=== PATIENT | female | born 1960 | race Hispanic/Latino ===

== ENCOUNTER 2018-01-05 17:59 | Inpatient (IN) | payer OTHER ==
[2018-01-05 18:18] VITALS: BMI 21.5
[2018-01-05 19:32] LABS: HCG,QUALITATIVE URINE NEGATIVE (NEGATIVE)
[2018-01-05 19:35] LABS: SQUAMOUS EPITHIAL 12 /hpf (0-5); URINE BILIRUBIN NEGATIVE (NEGATIVE); URINE BLOOD 1+ (NEGATIVE); URINE CLARITY Clear (Clear); URINE COLOR Amber (YELLOW); URINE GLUCOSE (UA) NORMAL (Normal); URINE LEUKOCYTE ESTERASE NEG Leu/uL (Negative); URINE PROTEIN NEGATIVE (NEGATIVE)
[2018-01-05 19:41] LABS: BASO % 0.8 % (0.0-2.0); HEMOGLOBIN 11.1 g/dL (11.0-16.0); LYMPH # 1.1 K/uL (1.0-4.3); LYMPH % 26.2 % (20.0-40.0); MEAN CELL VOLUME 96.9 fL (81.0-99.0); MEAN CORPUSCULAR HEMOGLOBIN 32.7 pg (27.0-31.0); MEAN CORPUSCULAR HGB CONC 33.7 g/dL (33.0-37.0); MEAN PLATELET VOLUME 8.8 fL (7.2-11.7); MONO # 0.6 K/uL (0.0-0.8); MONO % 14.1 % (0.0-10.0); NEUT # 2.3 K/uL (1.8-7.0); NEUT % 57.9 % (50.0-75.0); NRBC % 0.1 % (0.0-2.0); RBC 3.4 Mil/uL (3.80-5.20); RED CELL DISTRIBUTION WIDTH 15.1 % (11.5-14.5)
--- NOTE | 2018-01-05 19:41 | C.PDOC ---
History Of Present Illness 57 year old female presents to the ED requesting detox for alcohol abuse. Patient reports her last drink was couple of hours today [employer]. Patient denies SI/HI, hallucination, CP, SOB, injury, fall, trauma. Time Seen by Provider: 01/05/18 19:41 Chief Complaint (Nursing): Substance Abuse History Per: Patient History/Exam Limitations: intoxication Onset/Duration Of Symptoms: Hrs Current Symptoms Are (Timing): Still Present Suicide/Self Injury Attempted (Context): None Modifying Factor(s): Alcohol Associated Symptoms: denies: Depression, Suicidal Thoughts, Suicidal Plan Additional History Per: Patient Past Medical History Reviewed: Historical Data, Nursing Documentation, Vital Signs Vital Signs: Last Vital Signs Temp 98.4 F 01/05/18 18:22 Pulse 92 H 01/05/18 18:22 Resp 17 01/05/18 18:22 BP 128/73 01/05/18 18:22 Pulse Ox 97 01/05/18 18:22 - Medical History PMH: Seizures Surgical History: No Surg Hx Family History: States: Unknown Family Hx - Social History Hx Alcohol Use: Yes Hx Substance Use: No - Immunization History Hx Tetanus Toxoid Vaccination: No Hx Influenza Vaccination: No Hx Pneumococcal Vaccination: No Review Of Systems Constitutional: Negative for: Fever, Chills Eyes: Negative for: Vision Change Cardiovascular: Negative for: Chest Pain Respiratory: Negative for: Shortness of Breath Gastrointestinal: Negative for: Nausea, Vomiting, Abdominal Pain Skin: Negative for: Rash Psych: Negative for: Depression, Suicidal ideation Physical Exam - Physical Exam Appears: Non-toxic, No Acute Distress Skin: Warm, Dry Head: Normacephalic Eye(s): bilateral: Normal Inspection Oral Mucosa: Moist Neck: Supple Chest: Symmetrical Cardiovascular: Rhythm Regular Respiratory: No Rales, No Rhonchi, No Wheezing Gastrointestinal/Abdominal: Soft, No Tenderness, No Guarding, No Rebound Back: Normal Inspection Extremity: Normal ROM Extremity: Bilateral: Atraumatic, Normal Color And Temperature, Normal ROM Neurological/Psych: Oriented x3, Normal Speech, Normal Cognition Gait: Steady ED Course And Treatment - Laboratory Results Result Diagrams: 01/05/18 19:38 01/05/18 19:38 O2 Sat by Pulse Oximetry: 97 (ON RA) Pulse Ox Interpretation: Normal Progress Note: Plan: - Librium 100 mg PO. - Labs. - UA. - Crisis eval Disposition Discussed With DrJett: Juan J Guevara Comment: accepted the pt on his service and took over the care at 8:55 PM Doctor Will See Patient In The: Hospital Counseled Patient/Family Regarding: Studies Performed, Diagnosis - Disposition Disposition: HOSPITALIZED Disposition Time: 19:41 Condition: FAIR Forms: [facility] (Armenian) - Clinical Impression Clinical Impression: Alcohol use disorder - Scribe Statement The provider has reviewed the documentation as recorded by the Scribe Woody Jiang All medical record entries made by the Scribe were at my direction and personally dictated by me. I have reviewed the chart and agree that the record accurately reflects my personal performance of the history, physical exam, medi maryann decision making, and the department course for this patient. I have also personally directed, reviewed, and agree with the discharge instructions and disposition. Decision To Admit - Pt Status Changed To: Hospital Disposition Of: Inpatient - Admit Certification Admit to Inpatient:: After my assessment, the patient will require hospitalization for at least two midnights. This is because of the severity of symptoms shown, intensity of services needed, and/or the medical risk in this patient being treated as an outpatient. - InPatient: Physician Admission Certification: I certify that this patient requires 2 or more midnights of care for the following reason:: After my assessment, the patient will require hospitalization for at least two midnights. This is because of the severity of symptoms shown, intensity of services needed, and/or the medical risk in this patient being treated as an outpatient. - . Bed Request Type: Detox Admitting Physician: Juan J Guevara Patient Diagnosis: Alcohol use disorder
[2018-01-05 19:44] LABS: BARBITURATES, UR NEGATIVE (NEGATIVE); OPIATES, UR NEGATIVE (NEGATIVE); PHENCYCLIDINE, UR NEGATIVE (NEGATIVE)
[2018-01-05 19:50] LABS: BENZODIAZEPINES, UR POSITIVE (NEGATIVE)
[2018-01-05 19:54] LABS: ALB/GLOB RATIO 0.9 (1.0-2.1); ALBUMIN 3.9 g/dL (3.5-5.0); ALT/SGPT 41 U/L (9-52); AST/SGOT 139 U/L (14-36); BLOOD UREA NITROGEN 8 mg/dL (7-17); CALCIUM 8.4 mg/dl (8.6-10.4); GFR NON-AFRICAN AMERICAN > 60
--- NOTE | 2018-01-05 21:15 | PCM.BM ---
Treatment Plan Problems - Problems identified on initial assessmt Potential for alcohol withdrawal Date Initiated: 01/05/18 Time Initiated: 21:14 Assessment reference: NA Status: Active Treatment assets and liabiliti Patient Assests: ADL independent, negotiates basic needs, cognitively intact Patient Liabilities: substance abuse (alcohol) - Milieu Protocol Maintain good personal hygiene: daily Encourage regular showers, daily Remind patient to perform daily oral care, daily Assist patient to perform ADL's Conduct patient checks and document Observation sheet: Q15 minutes Maintain personal safety: every shift Educate patient to report safety concerns to staff, every shift Monitor environment for contraband/sharps Medication safety: Monitor for expected outcome, potential side effects: every shift, Assess barriers to learning: every shift, Assess readiness for medication education: every shift
[2018-01-05] MEDS ORDERED: Vitamins A & D Oint UD Foilpak TOP PRN (22:26)
[2018-01-05] MEDS: Brimonidine 0.2% Opth Sol (5ml) OU SCH (23:27)
[2018-01-05] MEDS: Latanoprost 2.5 ml Opht Soln OU SCH (23:28)
[2018-01-06] MEDS: Brimonidine 0.2% Opth Sol (5ml) OU SCH ×2 (09:51→18:38)
[2018-01-06] MEDS: Multiple Vitamins Tab PO SCH (12:47)
--- NOTE | 2018-01-06 19:00 | PCM.PSYCH ---
Initial Psychiatric Evaluation - Initial Psychiatric Evaluation Type of Admission: Voluntary Legal Status: Capacity Chief Complaint (in patient's own words): I need treatment for alcohol use. History of Present Illness and Precipitating Events: Patient is a 57 years old, single, unemployed, female with no previous psychiatric history was admitted due to withdrawing from alcohol. Alcohol: Patient started using alcohol in her 20s, increased gradually. Currently using 6 pack of beer daily and up to 3 little airplane bottles of vodka daily. Last used yesterday. Patient has history of seasonal. Last seizure 8 years ago. Patient is on Keppra. Denied use of any other drugs including cocaine, cannabis and alcohol. X Denied smoking cigarettes. Patient was born in [place] and has high school graduation. Not working for last 1 year. On SSD. Lives alone lives alone. Never and has no children. His height is 5 feet 2 inches and weight is 118 pounds. Current Medications: Active Medications Generic Name Dose Route Start Last Admin Trade Name Freq PRN Reason Stop Dose Admin Brimonidine Tartrate 0 ml 01/05/18 22:40 01/06/18 18:38 Alphagan 0.2% Opht OU 1 drop BID MICHELLE Administration Clonidine HCl 0.1 mg 01/06/18 12:33 Catapres PO Q4H PRN Symptoms of alcohol withdrawl Folic Acid 1 mg 01/06/18 12:45 01/06/18 12:47 Folic Acid PO 1 mg DAILY MICHELLE Administration Gabapentin 300 mg 01/06/18 18:00 01/06/18 18:35 Neurontin PO 300 mg BID MICHELLE Administration Ibuprofen 400 mg 01/06/18 12:36 Motrin Tab PO Q6 PRN Pain, moderate (4-7) Latanoprost 0 ml 01/05/18 22:31 01/05/18 23:28 Xalatan Opht OU 2.5 ml HS MICHELLE Administration Levetiracetam 750 mg 01/06/18 22:00 Keppra PO Q12 MICHELLE Lorazepam 2 mg 01/06/18 12:45 01/06/18 16:44 Ativan PO 01/11/18 12:44 2 mg Q4 MICHELLE Administration Taper Lorazepam 1 mg 01/06/18 12:33 Ativan PO Q4H PRN Symptoms of alcohol withdrawl Multivitamins 1 tab 01/06/18 12:45 01/06/18 12:47 Hexavitamin PO 1 tab DAILY MICHELLE Administration Thiamine HCl 100 mg 01/06/18 12:45 01/06/18 12:47 Vitamin B1 Tab PO 100 mg DAILY MICHELLE Administration Trazodone HCl 50 mg 01/05/18 22:06 01/05/18 22:35 Desyrel PO 50 mg HS PRN Administration Insomnia Vitamin A 1 ea 01/05/18 22:26 01/05/18 22:35 Vitamin A & D Oint Ud Foilpak TOP 1 ea BID PRN Administration dry skin Past Psychiatric History - Past Psychiatric History Previous Treatment History: None History of Abuse: None reported History of ETOH/Drug Use: See HPI History of Family Illness: None reported Pertinent Medical Hx (Current Medical&Sleep Prob, Allergies): Allergies Allergy/AdvReac Type Severity Reaction Status Date / Time sulfamethoxazole Allergy RASH Verified 01/05/18 18:18 [From Bactrim] trimethoprim [From Bactrim] Allergy RASH Verified 01/05/18 18:18 Brimonidine Tartrate [Alphagan P 0.1 % Ophth] 5 ml OU BID 01/05/18 Latanoprost 0.005% Opht [Xalatan Opht] 1 drop OU HS 01/05/18 Levetiracetam [Keppra] 750 mg PO BID 01/05/18 RX: Famotidine 20 mg PO DAILY 01/05/18 Review of Systems - Psychiatric Psychiatric: As Per HPI, Anxiety Mental Status Examination - Personal Presentation Personal Presentation: Looks stated age - Affect Affect: Other (Appropriate) - Motor Activity Motor Activity: Calm - Reliability in Providing Information Reliability in Providing Information: Fair - Speech Speech: Organized - Mood Mood: Anxious - Formal Thought Process Formal Thought Process: No Impairment - Hallucinations/Delusions Hallucinations: Other (None reported) Delusions: Other - Obsessions/Compulsions Obsessions: None Compulsions: None - Cognitive Functions Orientation: Person, Place, Situation, Time Sensorium: Alert Attention/Concentration: Attentive Abstract Thinking: Adamant Estimate of Intelligence: Average Judgement: Intact, as evidence by: Insight regarding need for hospitalization Memory: Recent intact, as evidence by: Ability to recall events of the day, Remote intact, as evidenced by: Ability to recall historical events - Risk Risk: Withdrawal, Diminished functioning - Strength & Assets Inventory Strength & Assets Inventory: Cooperative - Limitations Limitations: Living alone DSM 5 DX - DSM 5 DSM 5 Diagnosis: Alcohol withdrawal Alcohol use disorder severe - Recommended/Plan of Treatment Treatment Recommendations and Plan of Treatment: Patient education. Supportive therapy. CBT for relapse prevention. [place] for abstinence. We'll start lorazepam taper for alcohol withdrawal symptoms. Other when necessary medications. Projected ELOS: 4-5 days - Smoking Cessation Smoking Cessation Initiated: No Reason for not providing: Patient doesn't smoke cigarettes
[2018-01-06] MEDS: Latanoprost 2.5 ml Opht Soln OU SCH (21:00)
[2018-01-07] MEDS: Multiple Vitamins Tab PO SCH (09:46)
[2018-01-07] MEDS: Brimonidine 0.2% Opth Sol (5ml) OU SCH ×2 (09:50→18:16)
--- NOTE | 2018-01-07 14:48 | PCM.PYCHPN ---
Psychiatric Progress Note - Psychiatric Progress Note Patient seen today, length of contact: 15 minutes Patient Chief Complaint: I'm feeling better than before. Problems Identified/Issues Discussed: Patient seen, chart reviewed, case discussed with the staff. Issues related to illness and treatment were discussed with the patient and staff. Reported compliant with treatment with no adverse effects. Tolerating treatment very well. Reported feeling better with few withdrawal symptoms including body aches and some anxiety. Awake, alert and oriented 3. Calm and cooperative with good eye contact. Mood reported as anxious. Affect appropriate. Treatment discussed with the patient. Needs more time for stabilization. Aftercare discussed with the patient. Denied any delusions, auditory or visual hallucinations, suicidal ideations or homicidal ideations at the time of evaluation. Medical Problems: Seizure disorder Diagnostic Results: Reviewed DSM 5 Symptoms Update: Some improvement with treatment. Medication Change: No Medical Record Reviewed: Yes Mental Status Examination - Cognitive Function Orientation: Person, Place, Situation, Time Memory: Intact Attention: WNL Concentration: WNL Association: WNL Fund of Knowledge: [facility] Decription of patient's judgement and insights: Fair - Mood Mood: Anxious - Affect Affect: Other (Appropriate) - Speech Speech: Appropriate - Formal Thought Process Formal Thought Process: No Impairment Psychotic Thoughts and Behaviors: None - Suicidal Ideation Suicidal Ideation: No - Homicidal Ideation Homicidal Ideation: No Goal/Treatment Plan - Goal/Treatment Plan Need for Continued Stay: Remain at risks for inpatient hospitalization, Discharge may exacerbated symptoms, Severe functional impairment Progress Toward Problem(s) and Goals/Treatment Plan: Patient education. Supportive therapy. CBT for relapse prevention. [facility] for abstinence. Continue treatment as before. Estimated Date of D/C: 01/10/18 - Smoking Cessation Smoking Cessation Initiated: No
[2018-01-07 20:28] VITALS: RESP 18
[2018-01-07] MEDS: Latanoprost 2.5 ml Opht Soln OU SCH (21:11)
[2018-01-08] MEDS: Multiple Vitamins Tab PO SCH (09:10)
[2018-01-08] MEDS: Brimonidine 0.2% Opth Sol (5ml) OU SCH ×2 (09:11→18:04)
--- NOTE | 2018-01-08 15:18 | PCM.PYCHPN ---
Psychiatric Progress Note - Psychiatric Progress Note Patient seen today, length of contact: 15 minutes Medication Change: Yes Medical Record Reviewed: Yes Mental Status Examination - Cognitive Function Orientation: Person, Place, Situation, Time Memory: Intact Attention: WNL Concentration: WNL Association: WNL Fund of Knowledge: WNL - Mood Mood: Anxious - Affect Affect: Other (Appropriate) - Speech Speech: Appropriate - Formal Thought Process Formal Thought Process: No Impairment - Suicidal Ideation Suicidal Ideation: No - Homicidal Ideation Homicidal Ideation: No Goal/Treatment Plan - Goal/Treatment Plan Need for Continued Stay: Remain at risks for inpatient hospitalization, Discharge may exacerbated symptoms, Severe functional impairment Estimated Date of D/C: 01/10/18
[2018-01-08] MEDS: Latanoprost 2.5 ml Opht Soln OU SCH (21:30)
[2018-01-09 02:56] VITALS: TEMP 98.6
[2018-01-09 08:35] VITALS: BP 105/66; PULSE 84; O2SAT 98
--- NOTE | 2018-01-09 08:58 | PCM.PYCHDC ---
Mental Status Examination - Mental Status Examination Orientation: Person Discharge Summary - Discharge Note Consultations:: List each consultation separately and include: 1. Reason for request. 2. Findings. 3. Follow-up Summary of Hospital Course include:: 1. Description of specific treatment plan utilized for patients during their course of treatmen. 2. Summarize the time- course for resolution of acute symptoms and/or regressed behaviors. 3. Describe issues identified and worked on during hospitalization. 4. Describe medication utilized. 5. Describe medical problems identified and treated. 6. Reassessment of suicide risk Summary of Hospital Course: She went to [place] and will try to get into one of the two IOPs she was referred to. - Final Diagnosis (DSM 5) Condition upon Discharge: FAIR Disposition: HOME/ ROUTINE
[2018-01-09] MEDS: Multiple Vitamins Tab PO SCH (09:17)
[2018-01-09] MEDS: Brimonidine 0.2% Opth Sol (5ml) OU SCH (09:21)
== END 2018-01-09 10:30 | disposition home or self-care (01) | DRG 751 ==
LOC: C.ER 17:59 → C.7D 20:54
PROC: HZ2ZZZZ Detoxification Services for Substance Abuse Treatment (ICD-10-PCS; principal; 2018-01-05)
PROC: HZ52ZZZ Individual Psychotherapy for Substance Abuse Treatment, Cognitive-Behavioral (ICD-10-PCS; 2018-01-05)
PROC: HZ59ZZZ Individual Psychotherapy for Substance Abuse Treatment, Supportive (ICD-10-PCS; 2018-01-05)
PROC: HZ56ZZZ Individual Psychotherapy for Substance Abuse Treatment, Psychoeducation (ICD-10-PCS; 2018-01-05)
PROC: HZ42ZZZ Group Counseling for Substance Abuse Treatment, Cognitive-Behavioral (ICD-10-PCS; 2018-01-05)
PROC: HZ46ZZZ Group Counseling for Substance Abuse Treatment, Psychoeducation (ICD-10-PCS; 2018-01-05)
PROC: GZHZZZZ Group Psychotherapy (ICD-10-PCS; 2018-01-05)
PROC: GZ58ZZZ Individual Psychotherapy, Cognitive-Behavioral (ICD-10-PCS; 2018-01-05)
PROC: GZ56ZZZ Individual Psychotherapy, Supportive (ICD-10-PCS; 2018-01-05)
DX: F10.230 Alcohol dependence with withdrawal, uncomplicated (principal); Y90.7 Blood alcohol level of 200-239 mg/100 ml; F41.9 Anxiety disorder, unspecified; G40.909 Epilepsy, unspecified, not intractable, without status epilepticus